=== PATIENT | female | born 1990 | race Caucasian/White ===

== ENCOUNTER 2017-08-01 05:14 | Inpatient (IN) | payer OTHER ==
[~2017-08-01 05:14] MED LIST: BICITRA 30 ML CUP PO SCH; CEFAZOLIN 2 GM-D5W BAG** 2 GM/50 ML ML IV SCH; Lactated Ringers 1,000 ML IV ONE; Lactated Ringers 1,000 ML IV SCH; Pepcid 20 MG VIAL IV SCH; Reglan 10 MG/2 ML IV SCH
[2017-08-01 05:56] LABS: Hematocrit 40.1 % (35-47); Hemoglobin 13.1 gm/dl (12.0-16.0); Mean Cell Volume 85.1 fl (78-100); Mean Corpuscular Hemoglobin 27.8 pg (26-32); Mean Corpuscular Hgb Concent. 32.7 g/dl (32-36); Mean Platelet Volume 11.9 fl (6-9.5); Platelet Count 235 K/mm3 (150-450); Red Blood Count 4.71 M/mm3 (4.1-5.4); Red Cell Distribution Width 13.2 % (11.5-14.0); White Blood Count 9.8 K/mm3 (4.0-10.5)
[2017-08-01 06:05] LABS: INR 0.89 (0.8-3.0)
[2017-08-01 06:08] LABS: PTT 28.3 SECONDS (25.3-37.0)
[2017-08-01 06:16] LABS: Appearance CLEAR (CLEAR); Bilirubin NEGATIVE (NEGATIVE); Blood NEGATIVE Ery/ul (0-5); Glucose NEGATIVE (NEGATIVE); Ketones NEGATIVE (NEGATIVE); Leukocyte Esterase 1+ (NEGATIVE); Nitrite NEGATIVE (NEGATIVE); Protein,Urine Dip NEGATIVE (Negative); Urobilinogen NORMAL mg/dL (0-1)
[2017-08-01 06:26] LABS: Bacteria MODERATE /HPF (NEGATIVE); Epithelial Cells FEW /HPF (FEW)
[2017-08-01 06:29] LABS: Amphetamine,Urine NEGATIVE (NEGATIVE); Barbiturate,Urine NEGATIVE (NEGATIVE); Benzodiazepine,Urine NEGATIVE (NEGATIVE); Cocaine,Urine NEGATIVE (NEGATIVE); Methadone,Urine NEGATIVE (NEGATIVE); Opiate,Urine NEGATIVE (NEGATIVE); PCP,Urine NEGATIVE (NEGATIVE); THC,Urine NEGATIVE (NEGATIVE)
[2017-08-01 07:01] LABS: ABO TYPING O; Antibody Screen NEGATIVE (NEGATIVE); RH TYPING POSITIVE
[2017-08-01] MEDS ORDERED: Lactated Ringers 1,000 ML IV ONE (08:31)
[2017-08-01] MEDS ORDERED: Anucort-HC SUPPOSITORY PR PRN (09:00)
[2017-08-01] MEDS ORDERED: CORTISONE 1% CREAM TP PRN (09:00)
[2017-08-01] MEDS ORDERED: Dextrose 5%-Lr IV Solution 1000 ML 1,000 ML IV SCH (09:00)
[2017-08-01] MEDS ORDERED: DEMEROL 50 MG IV PRN (09:00)
[2017-08-01] MEDS ORDERED: BENADRYL 50 MG/ML IV PRN (09:00)
[2017-08-01] MEDS ORDERED: Dulcolax 10 MG SUPP PR PRN (09:00)
[2017-08-01] MEDS ORDERED: HOLD NARCOTIC ANALGESICS AND SEDATIVES X24 HR MC PRN (09:00)
[2017-08-01] MEDS ORDERED: PERCOCET TABLET 5/325MG PO PRN (09:00)
[2017-08-01] MEDS ORDERED: CLARITIN 10 MG PO PRN (09:00)
[2017-08-01] MEDS ORDERED: Dermoplast Spray TP PRN (09:00)
[2017-08-01] MEDS ORDERED: Nubain 10 MG/ML IV PRN (09:00)
[2017-08-01] MEDS ORDERED: Narcan 0.4 MG/ML IV PRN (09:00)
[2017-08-01] MEDS ORDERED: Zofran 4 MG/2 ML VIAL IV PRN (09:00)
[2017-08-01] MEDS ORDERED: MORPHINE SULFATE 2 MG INJ IV PRN (09:00)
[2017-08-01] MEDS ORDERED: Mylicon 80MG PO PRN (09:00)
[2017-08-01 09:51] LABS: Appearance CLEAR (CLEAR); Bilirubin NEGATIVE (NEGATIVE); Blood NEGATIVE Ery/ul (0-5); Glucose NEGATIVE (NEGATIVE); Ketones NEGATIVE (NEGATIVE); Leukocyte Esterase NEGATIVE (NEGATIVE); Nitrite NEGATIVE (NEGATIVE); Protein,Urine Dip NEGATIVE (Negative); Specific Gravity 1.005 (1.005-1.025); Urobilinogen NORMAL mg/dL (0-1)
--- NOTE | 2017-08-01 09:55 | OP ---
SURGERY DATE: 08/01/17 SURGERY TIME: 0750 PREOPERATIVE DIAGNOSES: 1. INTRAUTERINE GROWTH RESTRICTION. 2. HISTORY OF PRIOR SECTION. 3. TERM INTRAUTERINE . POSTOPERATIVE DIAGNOSES: 1. INTRAUTERINE GROWTH RESTRICTION. 2. HISTORY OF PRIOR SECTION. 3. TERM INTRAUTERINE . PROCEDURE: 1. Repeat low transverse section. SURGEON: Hilario Aponte M.D. ANESTHESIA: Spinal by Sunil Haynes CRNA. ESTIMATED BLOOD LOSS: 300 cc. URINE: 50 cc of clear, straw-colored urine. IV FLUIDS: 1500 cc of crystalloid. SPECIMEN: 1. Placenta was sent for pathology. DESCRIPTION OF PROCEDURE: After informed written consent was obtained, the patient was taken to the OR. She underwent spinal anesthesia. Was prepped and draped in the usual sterile fashion. After adequate level of anesthesia was assessed, a low transverse skin incision was made by knife and carried down through the subcutaneous fat to the level of the fascia. The fascia was nicked on both sides of the midline and extended in a horizontal fashion using curved Stevens scissors. The superior free edge of the fascia was then grasped with Quinten clamps and the underlying rectus muscles were dissected free. The same was repeated inferiorly. The peritoneal cavity was then opened and bladder blade was inserted. Bladder flap was reflected over the lower uterine segment. A horizontal uterine incision was made by knife and carried down to the level of the amniotic membranes which were carefully artificially ruptured. Viable male infant was delivered from the vertex presentation. Strong cry after bulb suction of the oropharynx and nares and stimulation. Cord was clamped and cut and he was handed off to the awaiting nursery team. The placenta was manually removed from the uterine cavity and then the uterus was exteriorized. The uterine cavity was sponge curetted clean with a Lap sponge. Next, the uterine incision was closed with #1 chromic in a running, locked fashion with good closure and good hemostasis. The posterior cul-de-sac was wiped free of blood and clot with a moist Lap sponge and then the uterus was returned to the peritoneal cavity. Lateral gutters were wiped free of blood and clot and again, the uterine incision was inspected and noted to be hemostatic. Next, the fascia was closed with 0 Vicryl in a running fashion. Good closure and good hemostasis were achieved. Subcutaneous fat was irrigated with warm, sterile saline and any areas of bleeding were cauterized with electrocautery. Finally, the skin layer was closed with 4-0, undyed Vicryl in running subcuticular fashion. Steri-Strips and an occlusive dressing were placed over the incision and the patient was transferred to the recovery room in excellent condition.
[2017-08-01] MEDS ORDERED: Decadron 4 MG INJ IV ONE (13:16)
[2017-08-01] MEDS ORDERED: Ephedrine Sulfate 50 MG/ML IJ ONE (13:16)
[2017-08-01] MEDS ORDERED: Astramorph-Pf 5 MG/10 ML IV ONE (13:16)
[2017-08-01] MEDS ORDERED: Marcaine Spinal Ampul IJ ONE (13:16)
[2017-08-01] MEDS ORDERED: LIDOCAINE HCL 1% AMPUL 5 ML IJ ONE (13:16)
[2017-08-01] MEDS ORDERED: Naropin 0.5% 30 ML VIAL IJ ONE (13:16)
[2017-08-01] MEDS ORDERED: Pitocin 10 UNITS/ML IV ONE (13:16)
[2017-08-01] MEDS ORDERED: Zofran 4 MG/2 ML VIAL IV ONE (13:16)
[2017-08-01] MEDS: FERREX 150 PO SCH (13:43)
[2017-08-01] MEDS: Colace 100 MG PO SCH ×2 (13:43→21:43)
[2017-08-01] MEDS: MOTRIN 400 MG PO PRN (16:41)
[2017-08-01] MEDS: TYLENOL EXTRA STRENGTH 500 MG PO PRN (22:31)
[2017-08-02 02:06] VITALS: O2SAT 100
[2017-08-02 05:41] LABS: Granulocyte Absolute (ANC) 11.38 (1.4-6.9); Hematocrit 35.4 % (35-47); Hemoglobin 11.6 gm/dl (12.0-16.0); Mean Cell Volume 85.7 fl (78-100); Mean Corpuscular Hgb Concent. 32.8 g/dl (32-36); Mean Platelet Volume 11.3 fl (6-9.5); Platelet Count 215 K/mm3 (150-450); Red Blood Count 4.13 M/mm3 (4.1-5.4); Red Cell Distribution Width 13.2 % (11.5-14.0)
[2017-08-02] MEDS: LANSINOH 40 GM TOP PRN (05:52)
[2017-08-02 06:21] LABS: Lymphocytes 21 % (24-44); Monocyte 5 % (0.0-12.0); Neutrophils 74 % (36.0-66.0); Platelet Estimate NORMAL (NORMAL); Total Cells Counted 100
[2017-08-02] MEDS ORDERED: DEMEROL 75 MG IM PRN (08:00)
[2017-08-02] MEDS ORDERED: Phenergan 25 MG INJ IM PRN (08:00)
[2017-08-02] MEDS: THERAGRAN MULTIVITAMIN PO SCH (08:19)
[2017-08-02] MEDS: FERREX 150 PO SCH (08:19)
[2017-08-02] MEDS: MOTRIN 400 MG PO PRN ×3 (08:19→20:59)
[2017-08-02] MEDS: Colace 100 MG PO SCH ×2 (08:19→20:59)
[2017-08-02] MEDS: NORCO 5/325 MG PO PRN ×2 (10:50→16:20)
[2017-08-03] MEDS: TYLENOL EXTRA STRENGTH 500 MG PO PRN (02:05)
[2017-08-03] MEDS: MOTRIN 400 MG PO PRN (07:39)
[2017-08-03] MEDS: Colace 100 MG PO SCH (09:13)
[2017-08-03] MEDS: THERAGRAN MULTIVITAMIN PO SCH (09:13)
[2017-08-03] MEDS: FERREX 150 PO SCH (09:13)
[2017-08-03] MEDS: LANSINOH 40 GM TOP PRN (09:14)
[2017-08-03 10:37] VITALS: BP 117/67; PULSE 100
--- NOTE | 2017-08-07 09:23 | DS ---
DISCHARGE DIAGNOSIS: SECTION DELIVERY, PREVIOUS SECTION, TERM INTRAUTERINE . HOSPITAL COURSE: The patient is a 27 year-old white female now presenting for elective repeat section. The patient has done well postoperatively. She is now 48 hours past surgery doing well. She is currently breast feeding. She is afebrile with stable vital signs. The wound looks good. She is ready for discharge home at this time. She is discharged home with [place] to use on PRN basis of 5/325 mg four times a day PRN pain. She was instructed to follow in the office in one week for wound check. She is to come to the hospital if she has any problems with increase in bleeding, fever, pain, chills, sweats, redness or tenderness to the wound site.
== END 2017-08-03 12:20 | disposition home or self-care (01) | DRG 766 ==
LOC: OB 05:14
PROVIDERS: ADMIT Family Medicine; ATTEND Family Medicine
PROC: 10D00Z1 Extraction of Products of Conception, Low, Open Approach (ICD-10-PCS; principal; 2017-08-01)
DX: O36.5930 Maternal care for other known or suspected poor fetal growth, third trimester, not applicable or unspecified (principal); Z3A.37 37 weeks gestation of pregnancy; Z37.0 Single live birth
CPT/HCPCS: 36415; 64488; 76937; 76942; 80307; 81000; 81002; 85025; 85027; 85610; 85730; 86850; 86900; 86901; 87086; 88307; 94799; J0690; J1100; J2274; J2405; J2590; J2795; L0625; A9270-GY